=== PATIENT | male | born 1995 | race Two or more races ===

== ENCOUNTER 2023-04-25 13:19 | Emergency (ER) | payer OTHER ==
[~2023-04-25] VITALS: Ht 170.2 cm; Wt 83.9 kg
== END 2023-04-25 16:56 | disposition home or self-care (01) ==
LOC: ER 13:19
DX: R30.0 Dysuria (principal); R31.9 Hematuria, unspecified

== ENCOUNTER 2024-06-05 15:24 | Emergency (ER) | payer OTHER ==
[~2024-06-05] VITALS: Ht 170.2 cm; Wt 83.9 kg
[2024-06-05] MEDS ORDERED: ONDANSETRON HCL 2 MG/ML VIAL ONE (16:54)
[2024-06-05] MEDS ORDERED: HYOSCYAMINE SULFATE 0.125 MG TAB.SUBL ONE (16:54)
[2024-06-05] MEDS ORDERED: 0.9 % SODIUM CHLORIDE 1,000 ML IV ONE (17:00)
[2024-06-05] MEDS ORDERED: ONDANSETRON HCL 2 MG/ML VIAL IV ONE (17:00)
[2024-06-05] MEDS ORDERED: HYOSCYAMINE SULFATE 0.125 MG TAB.SUBL SL ONE (17:00)
[2024-06-05 17:25] LABS: HEMATOCRIT 50.8 % (39.0-48.0); MEAN CELL VOLUME 89.7 fL (80.0-100.00); MEAN CORPUSCULAR HEMOGLOBIN 31.8 pg (27.00-32.0); MEAN CORPUSCULAR HGB CONC 35.5 g/dl (32.0-36.0); PLATELET COUNT 298 K/uL (150-450); RED BLOOD COUNT 5.67 M/uL (4.00-6.00); RED CELL DISTRIBUTION WIDTH 13.3 % (11.5-14.5)
[2024-06-05 17:55] LABS: ALBUMIN 4.7 gm/dL (3.4-5.0); BILIRUBIN TOTAL 1.33 mg/dL (0.3-1.2); CREATININE SERUM 1.13 mg/dL (0.70-1.30); GFR 77.84; POTASSIUM 4.32 mEq/L (3.5-5.1); TOTAL PROTEIN 8.7 gm/dL (6.4-8.2)
== END 2024-06-05 19:32 | disposition home or self-care (01) ==
LOC: ER 15:25
PROVIDERS: General Practice
DX: A09 Infectious gastroenteritis and colitis, unspecified (principal); R11.10 Vomiting, unspecified

== ENCOUNTER 2024-06-22 06:31 | Emergency (ER) | payer OTHER ==
[~2024-06-22] VITALS: Ht 170.2 cm; Wt 83.9 kg
[2024-06-22] MEDS ORDERED: ACETAMINOPHEN 500 MG GEL..CAP PO ONE ×2 (08:30→08:51)
[2024-06-22] MEDS ORDERED: CHLORASEPTIC M118 ML MM (08:34)
[2024-06-22] MEDS ORDERED: AMOX1TAB5 PO (08:34)
[2024-06-22] MEDS ORDERED: NASAL MIST126 ML NASAL (08:34)
== END 2024-06-22 09:24 | disposition home or self-care (01) ==
LOC: ER 06:33
DX: J02.9 Acute pharyngitis, unspecified (principal); J32.9 Chronic sinusitis, unspecified

== ENCOUNTER 2024-10-14 13:38 | Emergency (ER) | payer OTHER ==
[~2024-10-14] VITALS: Ht 167.6 cm; Wt 81.6 kg
[~2024-10-14 13:38] MED LIST: AMOX1TAB5 PO; CHLORASEPTIC M118 ML MM; NASAL MIST126 ML NASAL
[2024-10-14 14:36] VITALS: BP 123/77; O2SAT 99
[2024-10-14] MEDS ORDERED: OSELTAMIVIR PHOSPHATE 75 MG CAPSULE PO STA (17:15)
[2024-10-14] MEDS ORDERED: OSELTAMIVIR PHOSPHATE 75 MG CAPSULE PO ONE (17:20)
[2024-10-14] MEDS ORDERED: ZITHROMAX500 MG PO (17:24)
[2024-10-14] MEDS ORDERED: OSEL75CA PO (17:24)
== END 2024-10-14 17:30 | disposition home or self-care (01) ==
LOC: ER 13:40
DX: J10.1 Influenza due to other identified influenza virus with other respiratory manifestations (principal); A49.3 Mycoplasma infection, unspecified site

== ENCOUNTER 2025-06-28 05:47 | Emergency (ER) | payer OTHER ==
[~2025-06-28] VITALS: Ht 167.6 cm; Wt 83.9 kg
[~2025-06-28 05:47] MED LIST changes: +OSEL75CA PO; +ZITHROMAX500 MG PO
[2025-06-28 09:08] LABS: BASO % 0.6 % (0.1-1.2); EOS # 0.29 (0.04-0.54); EOS % 4.3 % (0.7-7.0); LYMPH # 2.01 (1.18-3.74); LYMPH % 29.8 % (19.3-53.1); MEAN PLATELET VOLUME 9.50 fl (9.4-12.4); MONO # 0.69 (0.24-0.82); MONO % 10.2 % (4.7-12.5); NEUT # 3.67 (1.56-6.13); NEUT % 54.5 % (34.0-71.1); RED CELL DISTRIBUTION WIDTH 12.2 % (11.6-14.4)
[2025-06-28 10:23] LABS: COVID-19 AG NEGATIVE (NEGATIVE)
== END 2025-06-28 11:36 | disposition home or self-care (01) ==
LOC: ER 05:47
PROVIDERS: General Practice
DX: B34.9 Viral infection, unspecified (principal); Z20.822 Contact with and (suspected) exposure to COVID-19